=== PATIENT | male | born 2000 | race Caucasian/White ===

== ENCOUNTER 2024-01-08 11:33 | Outpatient (AMB) | payer BC, SELFPAY ==
--- NOTE | 2024-01-08 11:41 | MHC.OFFWIV ---
Intake Vital Signs 01/08/24 11:51 BP 122/80 Blood Pressure Location Rt brachial Position Sitting Pulse 106 H Pulse Source Pulse Oximeter Temp 99.1 F Temp Source Oral Pulse Oximetry (%) 97 Oxygen Delivery Method Room Air Intake Visit Reasons: EP sinus infection vertigo??? Intake Note: pt is here for sinus infection and vertigo Patient Tobacco Use Status: Never used Tobacco Allergies No Known Allergies Allergy (Verified 01/08/24 11:42) Do you need a note to return to daycare/school/sports/work: Yes HPI HPI Comments History of Present Illness Details 23 y/o male patient who presents to walk in clinic with c/o dizziness and Sinus pressure for few days now. Denies sneezing, runny nose, cough, fevers or chills. PFSH Social History Patient Tobacco Use Status: Never used Tobacco Review of Systems Const All systems reviewed & are unremarkable except as noted in HPI and below Physical Exam Vital Signs: Last Vital Signs Temp 99.1 F 01/08/24 11:51 Pulse 106 H 01/08/24 11:51 BP 122/80 01/08/24 11:51 Pulse Ox 97 01/08/24 11:51 Oxygen Delivery Method Room Air 01/08/24 11:51 Const General: comfortable and no acute distress Nutritional Appearance: obese Orientation/consciousness: patient oriented x3 HEENT Head: Yes normocephalic Ears: external ears normal and TM abnormal bulging and with fluid behind the TM; not erythematous General nose exam: Abnormal mucous membranes and turbinates present boggy and erythematous Face and sinus: Yes sinuses nontender Mouth: moist mucous membranes Throat: Yes abnormal tonsil (Enlarge Tonsils + 1) Resp Effort & Inspection: normal respiratory effort and able to speak in complete sentences Auscultation: clear to auscultation bilaterally, no crackles, no rales, no rhonchi and no wheezes Cardio Rate: regular rate Rhythm: regular rhythm Neuro General: patient oriented x3, gait normal and moves all extremities Psych Speech and movement: Normal speech and movement present Assessment & Plan Assessment & Plan (1) Allergic rhinitis: Code(s): J30.9 - Allergic rhinitis, unspecified Qualifiers: Allergic rhinitis seasonality: seasonal Allergic rhinitis trigger: pollen Qualified Code(s): J30.1 - Allergic rhinitis due to pollen Plan: Prescribed Flonase and Zyrtec Take Zyrtec BID F/U with PCP if not improved (2) Dizziness: Code(s): R42 - Dizziness and giddiness Plan: Hydrate well with water Change positions slowly Medications: New cetirizine (Zyrtec) TAKE DIRECTED 10 mg PO DAILY PRN 90 tabs 0RF allergy symptoms J30.1 - Allergic rhinitis due to pollen fluticasone propionate 50 mcg/actuation administer into each nostril 1 spray intranasal DAILY PRN 16 grams 0RF allergy symptoms J30.1 - Allergic rhinitis due to pollen meclizine 25 mg PO BID PRN 30 tabs 0RF dizziness R42 - Dizziness and giddiness Coding Level of Care Code New Pt Level 3 (37343) Diagnoses Seasonal allergic rhinitis due to pollen J30.1 Allergic rhinitis seasonality: seasonal Allergic rhinitis trigger: pollen Dizziness R42 Time Spent (min) 15
[2024-01-08 11:51] VITALS: BP 122/80; PULSE 106; TEMP 37.3; O2SAT 97
== END 2024-01-08 13:50 | disposition home or self-care (01) ==
PROVIDERS: PCP Nurse Practitioner Family; Visit Provider Nurse Practitioner Family
DX: J30.1 Allergic rhinitis due to pollen (principal); R42 Dizziness and giddiness
CPT/HCPCS: 99203